=== PATIENT | male | born 1985 | race Caucasian/White ===

== ENCOUNTER 2017-10-12 07:23 | Emergency (ER) | payer SELFPAY ==
[~2017-10-12] VITALS: Ht 172.7 cm; Wt 81.8 kg
[~2017-10-12 07:23] MED LIST: DOXYCYCLINE 10100 MG PO; NO HOME MEDICATIONS; PREDNISONE20 MG PO
[2017-10-12 07:58] VITALS: BP 127/76; TEMP 98.2
[2017-10-12] MEDS ORDERED: CEPHALEXIN500 M1 PO (09:16)
[2017-10-12] MEDS ORDERED: NORCO 325 MG-51 TAB PO (09:16)
[2017-10-12 09:46] VITALS: PULSE 100
== END 2017-10-12 09:46 | disposition home or self-care (01) ==
LOC: COL.ER 07:23
DX: S09.90XA Unspecified injury of head, initial encounter (principal); S02.80XA Fracture of other specified skull and facial bones, unspecified side, initial encounter for closed fracture; S60.222A Contusion of left hand, initial encounter; S60.221A Contusion of right hand, initial encounter; S00.81XA Abrasion of other part of head, initial encounter; V29.9XXA Motorcycle rider (driver) (passenger) injured in unspecified traffic accident, initial encounter
CPT/HCPCS: J2270; J2405